=== PATIENT | male | born 1945 | race Caucasian/White ===

== ENCOUNTER 2023-04-15 10:59 | Outpatient (CLI) | payer MEDICARE, BC ==
[2023-04-15 13:27] LABS: Hematocrit 44.9 % (38.8-50.0); Hemoglobin 15.1 g/dL (13.5-17.5); Mean Corpuscular HGB CONC 33.6 g/dL (32.0-36.0); Mean Corpuscular Hemoglobin 31.8 pg (27.0-33.0); Mean Corpuscular Volume 94.5 fl (81.2-95.1); Mean Platelet Volume 10.5 fl (7.4-10.4); Platelet Count 224 10x3/uL (150-450); RBC Distribution Width 13.6 % (11.5-14.5); Red Blood Cell (RBC) Count 4.75 10x6/uL (4.32-5.72)
[2023-04-15 13:56] LABS: Prothrombin Time 11.2 sec (9.5-12.1)
[2023-04-15 14:08] LABS: ALT (SGPT) 45 U/L (8-55); AST (SGOT) 29 U/L (5-34); Albumin 3.9 g/dL (3.4-4.8); Alkaline Phosphatase 82 U/L (40-110); Anion Gap 14 mmol/L (10-20); BUN (Urea Nitrogen) 20 mg/dL (8.4-25.7); Bilirubin, Total 0.8 mg/dL (0.2-1.2); Calc. Creatinine Clearance 0 mL/min (70-130); Calcium 8.6 mg/dL (7.8-10.44); Carbon Dioxide 22 mmol/L (23-31); Chloride 109 mmol/L (98-107); Estimated GFR 81; Globulin 2.3 g/dL (2.4-3.5); Glucose 88 mg/dL (83-110); Magnesium 2.2 mg/dL (1.6-2.6); Potassium 3.8 mmol/L (3.5-5.1); Protein, Total 6.2 g/dL (5.8-8.1); Sodium 141 mmol/L (136-145)
== END 2023-04-15 11:00 | disposition home or self-care (01) ==
LOC: CSHLAB 10:59
PROVIDERS: ATTEND Specialist
DX: Z01.818 Encounter for other preprocedural examination (principal)
CPT/HCPCS: 80053; 83735; 85027; 85610; 93005; 93010

== ENCOUNTER 2023-04-16 10:34 | Day surgery (SDC) | payer MEDICARE, BC ==
[2023-04-16] MEDS ORDERED: PROPOFOL 20 ML ONE (11:47)
[2023-04-16 12:03] VITALS: BP 120/90; TEMP 98.8
[2023-04-16] MEDS ORDERED: Potassium Chloride 20 MEQ TAB ONE (13:22)
== END 2023-04-16 13:30 | disposition home or self-care (01) ==
LOC: CSHSDC 10:34
PROVIDERS: ATTEND Specialist
PROC: 5A2204Z Restoration of Cardiac Rhythm, Single (ICD-10-PCS; principal; 2023-04-16)
DX: I48.0 Paroxysmal atrial fibrillation (principal); I25.118 Atherosclerotic heart disease of native coronary artery with other forms of angina pectoris; I50.32 Chronic diastolic (congestive) heart failure; E78.2 Mixed hyperlipidemia; Z90.89 Acquired absence of other organs; Z79.01 Long term (current) use of anticoagulants; Z79.82 Long term (current) use of aspirin; Z79.899 Other long term (current) drug therapy; Z87.891 Personal history of nicotine dependence
CPT/HCPCS: 92960; 93005; 93010; J2704

== ENCOUNTER → 2024-04-21 | Day surgery (SDC) | payer MEDICARE, OTHER ==
[~2024-04-21] MED LIST: FLU (Fluad Triv) TS24-25 (65UP)/MF59C/PF 45 MCG/0.5 ML Syringe IM ONE
[2024-04-21 11:21] LABS: #Basophils 0.02 10x3/uL (0.0-0.2); #Eosinophils 0.21 10x3/uL (0.0-0.5); #Monocytes 0.79 10x3/uL (0.0-1.1); %Basophils 0.3 % (0.0-2.0); %Eosinophils 3.5 % (0.0-6.0); %Lymphocytes 15.2 % (18.0-47.0); %Monocytes 13.1 % (0.0-10.0); %Neutrophils 67.7 % (40.0-75.0); Hematocrit 40.8 % (38.8-50.0); Hemoglobin 13.8 g/dL (13.5-17.5); Mean Corpuscular HGB CONC 33.8 g/dL (32.0-36.0); Mean Corpuscular Hemoglobin 33.1 pg (27.0-33.0); Mean Corpuscular Volume 97.8 fL (81.2-95.1); Mean Platelet Volume 9.2 fL (7.4-10.4); Platelet Count 194 10x3/uL (150-450); RBC Distribution Width 13.5 % (11.5-14.5); Red Blood Cell (RBC) Count 4.17 10x6/uL (4.32-5.72); White Blood Cell (WBC) Count 6.1 10x3/uL (3.5-10.5)
[2024-04-21 11:29] LABS: Prothrombin Time 10.9 sec (9.5-12.1)
[2024-04-21 12:02] VITALS: BP 113/83; TEMP 98.8
[2024-04-21 12:14] LABS: ALT (SGPT) 32 U/L (8-55); AST (SGOT) 34 U/L (5-34); Albumin 3.4 g/dL (3.4-4.8); Alkaline Phosphatase 86 U/L (40-110); Anion Gap 10 mmol/L (10-20); BUN (Urea Nitrogen) 23 mg/dL (8.4-25.7); Bilirubin, Total 0.6 mg/dL (0.2-1.2); Calc. Creatinine Clearance 94 mL/min (70-130); Calcium 8.7 mg/dL (7.8-10.44); Carbon Dioxide 27 mmol/L (23-31); Chloride 110 mmol/L (98-107); Estimated GFR 81; Globulin 3.2 g/dL (2.4-3.5); Glucose 83 mg/dL (83-110); Magnesium 2.1 mg/dL (1.6-2.6); Potassium 4.1 mmol/L (3.5-5.1); Protein, Total 6.6 g/dL (5.8-8.1); Sodium 143 mmol/L (136-145)
== END ==
LOC: CSHSDC 10:24
PROVIDERS: ATTEND Specialist
PROC: 5A2204Z Restoration of Cardiac Rhythm, Single (ICD-10-PCS; principal; 2024-04-21)
DX: I48.19 Other persistent atrial fibrillation (principal); I50.42 Chronic combined systolic (congestive) and diastolic (congestive) heart failure; E78.2 Mixed hyperlipidemia; I25.118 Atherosclerotic heart disease of native coronary artery with other forms of angina pectoris; N40.0 Benign prostatic hyperplasia without lower urinary tract symptoms; I25.10 Atherosclerotic heart disease of native coronary artery without angina pectoris; Z90.89 Acquired absence of other organs; Z90.49 Acquired absence of other specified parts of digestive tract; Z98.890 Other specified postprocedural states; Z87.891 Personal history of nicotine dependence; Z79.01 Long term (current) use of anticoagulants; Z91.041 Radiographic dye allergy status; Z88.8 Allergy status to other drugs, medicaments and biological substances; Z79.82 Long term (current) use of aspirin; Z79.899 Other long term (current) drug therapy; Z91.013 Allergy to seafood
CPT/HCPCS: 80053; 83735; 85025; 85610; 92960; 93005

== ENCOUNTER → 2024-06-09 | Day surgery (SDC) | payer MEDICARE, OTHER ==
[2024-06-09 10:11] VITALS: BP 127/89; TEMP 98.3
== END ==
LOC: CSHSDC 09:38
PROVIDERS: ATTEND Specialist
PROC: 5A2204Z Restoration of Cardiac Rhythm, Single (ICD-10-PCS; principal; 2024-06-09)
PROC: B24BZZ4 Ultrasonography of Heart with Aorta, Transesophageal (ICD-10-PCS; 2024-06-09)
DX: I48.0 Paroxysmal atrial fibrillation (principal); I25.118 Atherosclerotic heart disease of native coronary artery with other forms of angina pectoris; I11.0 Hypertensive heart disease with heart failure; I50.32 Chronic diastolic (congestive) heart failure; E78.2 Mixed hyperlipidemia; N40.0 Benign prostatic hyperplasia without lower urinary tract symptoms; Z95.5 Presence of coronary angioplasty implant and graft; Z87.891 Personal history of nicotine dependence; Z90.49 Acquired absence of other specified parts of digestive tract; Z98.890 Other specified postprocedural states; Z91.041 Radiographic dye allergy status; Z88.8 Allergy status to other drugs, medicaments and biological substances; Z79.01 Long term (current) use of anticoagulants; Z79.82 Long term (current) use of aspirin; Z79.899 Other long term (current) drug therapy
CPT/HCPCS: 92960; 93005; 93010; 93312

== ENCOUNTER 2025-02-27 08:39 | Outpatient (CLI) | payer MEDICARE, OTHER | END 2025-02-27 08:40 | disposition home or self-care (01) | LOC: CSHULT 08:39 | PROVIDERS: ATTEND Family Medicine | DX: M79.661 Pain in right lower leg (principal) ==